=== PATIENT | male | born 1980 | race Caucasian/White ===

== ENCOUNTER 2018-08-28 19:55 | Emergency (ER) | payer SELFPAY ==
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
== END 2018-08-28 22:11 | disposition home or self-care (01) ==
LOC: ER 19:55
DX: S13.9XXA Sprain of joints and ligaments of unspecified parts of neck, initial encounter (principal); V43.52XA Car driver injured in collision with other type car in traffic accident, initial encounter; Y93.89 Activity, other specified; Y92.410 Unspecified street and highway as the place of occurrence of the external cause; Y99.8 Other external cause status
CPT/HCPCS: 70450-TC; 70490-TC; 72125-TC; 93005; Z7502